=== PATIENT | male | born 1980 | race Caucasian/White ===

== ENCOUNTER 2023-01-16 18:50 | Emergency (ER) | payer OTHER ==
[~2023-01-16] VITALS: Ht 172.7 cm; Wt 81.6 kg
[2023-01-16] MEDS ORDERED: HYDROCODONE/APAP 5/325MG TABLET PO ONE (20:30)
[2023-01-16] MEDS ORDERED: HYDROCODONE/APAP 5/325MG TABLET ONE (20:33)
[2023-01-16] MEDS ORDERED: HYDR-4303 PO (20:34)
[2023-01-16 20:40] VITALS: BP 128/83; TEMP 98.3; O2SAT 99
== END 2023-01-16 20:41 | disposition home or self-care (01) ==
LOC: ER 19:10
DX: S80.02XA Contusion of left knee, initial encounter (principal); S20.212A Contusion of left front wall of thorax, initial encounter; V89.2XXA Person injured in unspecified motor-vehicle accident, traffic, initial encounter; Y93.89 Activity, other specified; Y92.89 Other specified places as the place of occurrence of the external cause; Y99.8 Other external cause status
CPT/HCPCS: 71100-TC; 73560-TC